=== PATIENT | male | born 1945 | race Caucasian/White ===

== ENCOUNTER 2020-12-19 09:24 | Emergency (ER) | payer MEDICARE, OTHER ==
[~2020-12-19] VITALS: Ht 175.3 cm; Wt 70.7 kg
[2020-12-19] MEDS ORDERED: DOXY1CAP62 PO (11:46)
[2020-12-19 11:52] VITALS: BP 165/81
== END 2020-12-19 12:02 | disposition home or self-care (01) ==
LOC: M ED 09:24
DX: A26.0 Cutaneous erysipeloid (principal)